=== PATIENT | male | born 1975 | race Hispanic/Latino ===

== ENCOUNTER 2020-05-25 16:07 | Emergency (ER) | payer OTHER ==
[2020-05-25] MEDS ORDERED: KETOROLAC TROMETHAMINE 60 MG/2 ML VIAL ONE (16:31)
== END 2020-05-25 17:03 | disposition home or self-care (01) ==
LOC: EDH 16:07
DX: S53.402A Unspecified sprain of left elbow, initial encounter (principal); S40.011A Contusion of right shoulder, initial encounter; V69.49XA Driver of heavy transport vehicle injured in collision with other motor vehicles in traffic accident, initial encounter; Y93.89 Activity, other specified; Y92.89 Other specified places as the place of occurrence of the external cause; Y99.8 Other external cause status
CPT/HCPCS: 73030; 73070; 96372; 99284; J1885